=== PATIENT | female | born 1965 | race Caucasian/White ===

== ENCOUNTER → 2016-08-05 | Outpatient (CLI) | payer BC ==
--- NOTE | 2016-08-05 11:25 | MM ---
Reason for exam: screening (asymptomatic). Last mammogram was performed 1 year ago. History: Patient is postmenopausal. Family history of breast cancer in sister at age 59. Physical Findings: A clinical breast exam by your physician is recommended on an annual basis and results should be correlated with mammographic findings. MG Screening Mammo w CAD Bilateral CC and MLO view(s) were taken. Prior study comparison: July 24, 2015, bilateral MG screening mammo w CAD. July 21, 2014, bilateral MG screening mammo w CAD. There are scattered fibroglandular densities. Finding: There are few typically benign round, diffuse/scattered and grouped calcifications in both breasts. Asymmetric breast tissue in the left breast is stable. There is no discrete abnormality. ASSESSMENT: Benign, BI-RAD 2 RECOMMENDATION: Routine screening mammogram of both breasts in 1 year.
== END | disposition home or self-care (01) ==
LOC: RADMAMWWP 06:48
PROVIDERS: ATTEND Family Medicine
DX: Z12.31 Encounter for screening mammogram for malignant neoplasm of breast (principal)

== ENCOUNTER → 2018-01-06 | Outpatient (CLI) | payer BC ==
--- NOTE | 2018-01-07 11:58 | MM ---
Reason for exam: screening (asymptomatic). Last mammogram was performed 1 year and 5 months ago. History: Patient is postmenopausal. Family history of breast cancer in sister at age 59. Physical Findings: A clinical breast exam by your physician is recommended on an annual basis and results should be correlated with mammographic findings. MG 3D Screening Mammo W/Cad Bilateral CC and MLO view(s) were taken. Prior study comparison: August 05, 2016, bilateral MG screening mammo w CAD. July 24, 2015, bilateral MG screening mammo w CAD. There are scattered fibroglandular densities. No significant changes when compared with prior studies. ASSESSMENT: Benign, BI-RAD 2 RECOMMENDATION: Routine screening mammogram of both breasts in 1 year.
== END | disposition home or self-care (01) ==
LOC: RADMAMWWP 06:52
PROVIDERS: ATTEND Family Medicine
DX: Z12.31 Encounter for screening mammogram for malignant neoplasm of breast (principal); Z80.3 Family history of malignant neoplasm of breast
CPT/HCPCS: 77063; 77067

== ENCOUNTER → 2018-02-06 | Outpatient (CLI) | payer BC ==
[2018-02-06 14:23] LABS: Blood Urea Nitrogen 13 mg/dL (7-17)
== END | disposition home or self-care (01) ==
LOC: LABWHC1 13:15
PROVIDERS: ATTEND Family Medicine
DX: N28.89 Other specified disorders of kidney and ureter (principal)
CPT/HCPCS: 36415; 82565; 84520

== ENCOUNTER → 2019-01-22 | Outpatient (CLI) | payer BC ==
--- NOTE | 2019-01-22 13:43 | XR ---
Lateral hips HISTORY: Pain 2 views of each hip are submitted on a total of 4 images Bone mineralization, alignment are maintained. Joint space may be slightly reduced. Multiple phleboli ths present within the pelvis. Question some mild marginal spurring right hip. IMPRESSION: Possible mild osteoarthritis. Hip MRI may be of benefit.
--- NOTE | 2019-01-22 13:45 | XR ---
Lumbosacral spine HISTORY: Back pain, degenerative disc disease 5 views of lumbosacral spine Correlation to prior exam 05/14/2016 Multilevel spondylosis is present. No evident spondylolysis or spondylolisthesis. Sclerosis of the po sterior elements is compatible with facet arthropathy. Loss of disc height present L5-S1, L4-5. Mild multilevel spondylosis. IMPRESSION: Degenerative disc disease and facet arthropathy similar to prior exam.
== END | disposition home or self-care (01) ==
LOC: RADXRMAIN 10:48
PROVIDERS: ATTEND Family Medicine
DX: M25.551 Pain in right hip (principal); M25.552 Pain in left hip; M54.5 Low back pain
CPT/HCPCS: 72110; 73521

== ENCOUNTER → 2019-02-24 | Outpatient (CLI) | payer BC | END | disposition home or self-care (01) | LOC: RADMRIMAIN 19:29 | PROVIDERS: ATTEND Family Medicine | DX: Z53.9 Procedure and treatment not carried out, unspecified reason (principal) ==

== ENCOUNTER → 2019-05-31 | Outpatient (CLI) | payer BC ==
--- NOTE | 2019-05-31 08:47 | MM ---
Reason for exam: screening (asymptomatic). Last mammogram was performed 1 year and 5 months ago. History: Patient is postmenopausal. Family history of breast cancer in sister at age 59. Physical Findings: A clinical breast exam by your physician is recommended on an annual basis and results should be correlated with mammographic findings. MG Screening Mammo w CAD Bilateral CC, MLO, and XCCL view(s) were taken. Prior study comparison: January 06, 2018, bilateral MG 3d screening mammo w/cad. August 05, 2016, bilateral MG screening mammo w CAD. There are scattered fibroglandular densities. No suspicious abnormality. Stable left upper outer quadrant focal asymmetry at posterior depth. No significant changes when compared with prior studies. ASSESSMENT: Benign, BI-RAD 2 RECOMMENDATION: Routine screening mammogram of both breasts in 1 year.
== END | disposition home or self-care (01) ==
LOC: RADMAMWWP 07:22
PROVIDERS: ATTEND Family Medicine
DX: Z12.31 Encounter for screening mammogram for malignant neoplasm of breast (principal)
CPT/HCPCS: 77067

== ENCOUNTER → 2019-08-31 | Outpatient (CLI) | payer BC ==
[2019-08-31 16:01] LABS: African American GFR (CKD) 95.5 (60.0-200.0); Albumin 4.6 g/dL (3.80-4.90); Albumin/Globulin Ratio 1.77 (1.60-3.17); BUN/Creat Ratio 17.5 Ratio (12.00-20.00); Calcium 9.9 mg/dL (8.7-10.3); Chol/HDL Ratio 3.89; Globulin 2.6 g/dL (1.6-3.3); LDL Cholesterol,Calculated 144.2 mg/dL (0.0-131.0); Non-African American GFR(CKD) 82.4 (60.0-200.0); Potassium 4.1 mmol/L (3.5-5.5); Total Bilirubin 0.4 mg/dL (0.2-1.2); Total Protein 7.2 g/dL (6.2-8.2); VLDL Calculation 37.8 mg/dL (5.00-40.00)
== END | disposition home or self-care (01) ==
LOC: LABWHC1 08:05
PROVIDERS: ATTEND Internal Medicine Interventional Cardiology
DX: E78.2 Mixed hyperlipidemia (principal)
CPT/HCPCS: 36415; 80053; 80061

== ENCOUNTER → 2019-10-04 | Outpatient (CLI) | payer BC ==
[2019-10-04 10:07] LABS: HCT 39.2 % (34.0-46.0); HGB 12.6 gm/dL (11.4-16.0); MCHC 32.2 g/dL (31.0-37.0); MCV 86.9 fL (80.0-100.0); Mean Platelet Volume 7.2; Platelet Count 229 k/uL (150-450); RBC 4.51 m/uL (3.80-5.40); RDW 13.9 % (11.5-15.5); WBC 6.2 k/uL (3.8-10.6)
[2019-10-04 10:11] LABS: African American GFR (CKD) >90 (>60 ml/min/1.73 sqM); Anion Gap 8 mmol/L; Blood Urea Nitrogen 13 mg/dL (7-17); Carbon Dioxide 23 mmol/L (22-30); Chloride 107 mmol/L (98-107); Non-African American GFR(CKD) >90 (>60 ml/min/1.73 sqM); Potassium 4.1 mmol/L (3.5-5.1); Sodium 138 mmol/L (137-145)
== END | disposition home or self-care (01) ==
LOC: LABWHC1 08:30
PROVIDERS: ATTEND Internal Medicine Interventional Cardiology
DX: Z01.818 Encounter for other preprocedural examination (principal); R07.9 Chest pain, unspecified
CPT/HCPCS: 36415; 80051; 82565; 84520; 85027

== ENCOUNTER → 2019-10-06 | Outpatient (CLI) | payer BC | END | disposition home or self-care (01) | LOC: LABWHC1 11:16 | PROVIDERS: ATTEND Internal Medicine Interventional Cardiology | DX: U07.1 COVID-19 (principal) | CPT/HCPCS: 87635 ==

== ENCOUNTER 2019-10-08 06:18 | Day surgery (SDC) | payer BC ==
[2019-10-05 16:38] VITALS: BMI 46.6
[2019-10-08] MEDS ORDERED: ATORVASTATIN 80 MG TAB PO STA (06:19)
[2019-10-08] MEDS ORDERED: ASPIRIN 325 MG TAB PO STA (06:19)
[2019-10-08] MEDS ORDERED: NITROGLYCERIN SL TABS 0.4 MG TAB SUBLINGUAL PRN (06:19)
[2019-10-08] MEDS ORDERED: SODIUM CHLORIDE 0.9% 1,000 ML in EMPTY BAG 1 BAG IV ONE (06:19)
[2019-10-08] MEDS ORDERED: ALPRAZolam 0.25 MG TAB PO PRN (06:19)
[2019-10-08] MEDS ORDERED: ALPRAZolam 0.5 MG TAB PO PRN (06:19)
[2019-10-08] MEDS ORDERED: SODIUM CHLORIDE 0.9% 1,000 ML IV ONE (07:12)
[2019-10-08 07:15] VITALS: TEMP 98.1
[2019-10-08] MEDS ORDERED: LIDOCAINE 1% INJ 10MG/ML (20 ML MDV) ONE (07:16)
[2019-10-08] MEDS ORDERED: VERAPAMIL 2.5 MG/ML 2 ML AMP ONE (07:16)
[2019-10-08] MEDS ORDERED: fentaNYL (PF) 50 MCG/ML 2 ML AMP ONE (07:32)
[2019-10-08] MEDS ORDERED: fentaNYL (PF) 50 MCG/ML 2 ML AMP IV ONE (07:35)
[2019-10-08] MEDS ORDERED: LIDOCAINE 1% INJ 10MG/ML (20 ML MDV) SQ ONE (07:37)
[2019-10-08] MEDS ORDERED: VERAPAMIL SYRINGE (5 MG/10 ML) INTRAARTER ONE (07:39)
[2019-10-08] MEDS ORDERED: HEPARIN SODIUM 1,000 UN/ML (10ML VL) ONE (07:43)
[2019-10-08] MEDS ORDERED: IOPAMIDOL-370 125ML BTL INJ ONE (07:57)
[2019-10-08] MEDS ORDERED: RX INFO: IV CONTRAST WAS GIVEN 1 EACH MISC MISCELLANE PRN (08:17)
[2019-10-08] MEDS ORDERED: SODIUM CHLORIDE 0.9% 1,000 ML IV SCH (08:30)
[2019-10-08] MEDS ORDERED: NON FORMULARY DRUG (Losartan Potassium [Cozaar] 100 MG) PO SCH (09:00)
[2019-10-08] MEDS ORDERED: METOPROLOL TARTRATE 25 MG TAB PO SCH (09:00)
[2019-10-08] MEDS ORDERED: PANTOPRAZOLE 40 MG TABLET PO SCH (09:00)
[2019-10-08] MEDS ORDERED: NON FORMULARY DRUG (Aspirin [Adult Low Dose Aspirin Ec] 81 MG) PO SCH (09:00)
[2019-10-08 09:40] VITALS: RESP 16
--- NOTE | 2019-10-08 10:30 | CC ---
CARDIAC CATHETERIZATION REPORT Mrs. Hughes is a 54-year-old female with known history of hypertension, hyperlipidemia, family history of premature coronary artery disease who has been complaining of exertional chest discomfort and dyspnea on exertion. She underwent a myocardial perfusion imaging that revealed distal antral wall ischemia. In view of that, recommendation made regarding cardiac catheterization. The procedures, risks, and complication were discussed with the patient who is in full understanding and agreement. PROCEDURE: Patient was brought to the operations label clerk in a fasting semi-sedated state after receiving fentanyl and Benadryl and achieving moderate conscious sedated state. Using Xylocaine anesthesia and Seldinger technique, a 6-Macanese sheath was introduced in the right radial artery. Selective right and left coronary angiography performed using 5-Macanese 3.5 bend, right Valeri and 6-Macanese Jeff catheter, multiple views of the coronary artery including hemiaxial views were obtained. Following that, catheter and sheath were removed. Hemostasis was obtained with deployment of a TR band. There was no immediate complication. Patient was returned to room in stable condition. Of note, the patient received 5000 units of intravenous heparin as well as intra-arterial verapamil. FINDINGS: LEFT MAIN: This is a large-sized vessel, bifurcating into left circumflex, left anterior descending artery. Left main coronary artery has no evidence of high-grade stenosis. LEFT ANTERIOR DESCENDING ARTERY: This is a large-sized vessel reaching toward the apex with a wraparound apex segment giving rise to a small diagonal branch. The left anterior descending artery as well as branches have no evidence of obstructive coronary artery disease. LEFT CIRCUMFLEX: This is a nondominant vessel, moderate in caliber, giving rise to two obtuse marginal branch. The left circumflex as well as branches have no evidence of obstructive coronary artery disease. RIGHT CORONARY ARTERY: This is a large dominant vessel, bifurcating distally into PDA, posterolateral segment and branches. The right coronary artery as well as branches have no evidence of obstructive coronary artery disease. LEFT VENTRICULOGRAM: Left ventriculogram was not performed. CONCLUSION: 1. Normal coronary arteries. 2. Right dominance. RECOMMENDATION: In view of finding anatomy, I recommend continue medical therapy with aggressive coronary risk modifications being initiated. Those findings and recommendation were discussed with the patient and her family and they are in full understanding and agreement. DURATION OF PROCEDURE: 24 minutes. MMODL / IJN: [id number] /
--- NOTE | 2019-10-08 10:36 | LTR ---
DATE OF SERVICE: 10/08/2019 RE: Aurelia Hughes Dear Dr. Fox: I had the pleasure to perform cardiac catheterization on Mrs. Hughes at [facility] on October 07 and a full copy of the procedure note will be forwarded to you. In brief, she was found to have no evidence of obstructive coronary artery disease and based on those findings, I recommend to continue medical therapy with aggressive risk modifications being initiated and thank you again for allowing me to participate in this patient's care. Please feel free to call for any questions. Sincerely yours, MD LEXII LojaL / EUNN: [id number] /
[2019-10-08 15:55] VITALS: BP 136/72; PULSE 70
[2019-10-12] MEDS ORDERED: NON FORMULARY DRUG (Rosuvastatin Calcium [Crestor] 5 MG) PO SCH (08:17)
== END 2019-10-08 14:05 | disposition home or self-care (01) ==
LOC: CATHCVL 06:18
PROVIDERS: ATTEND Internal Medicine Interventional Cardiology
DX: R07.89 Other chest pain (principal); R94.39 Abnormal result of other cardiovascular function study; R06.09 Other forms of dyspnea; R42 Dizziness and giddiness; R11.0 Nausea; I10 Essential (primary) hypertension; E78.2 Mixed hyperlipidemia; Z82.49 Family history of ischemic heart disease and other diseases of the circulatory system; M19.90 Unspecified osteoarthritis, unspecified site; K21.9 Gastro-esophageal reflux disease without esophagitis; E78.00 Pure hypercholesterolemia, unspecified; Z90.49 Acquired absence of other specified parts of digestive tract; Z98.890 Other specified postprocedural states; Z87.891 Personal history of nicotine dependence; Z79.82 Long term (current) use of aspirin; Z79.899 Other long term (current) drug therapy; Z88.8 Allergy status to other drugs, medicaments and biological substances
CPT/HCPCS: 93454; C1769; C1894; J2001; J3010; J1644; Q9967

== ENCOUNTER → 2019-11-23 | Outpatient (CLI) | payer BC ==
[2019-11-23 18:02] LABS: Chol/HDL Ratio 3.88
== END | disposition home or self-care (01) ==
LOC: LABWHC1 08:00
PROVIDERS: ATTEND Nurse Practitioner Adult Health
DX: E78.2 Mixed hyperlipidemia (principal)
CPT/HCPCS: 36415; 80061

== ENCOUNTER 2020-12-04 11:53 | Emergency (ER) | payer BC ==
--- NOTE | 2020-12-04 12:48 | ED ---
ENT HPI - General Chief complaint: ENT Stated complaint: Ear pain Time Seen by Provider: 12/04/20 12:23 Source: patient Mode of arrival: ambulatory Limitations: no limitations - History of Present Illness Initial comments: 55-year-old female presents to the emergency department with a chief complaint of left ear pain for over the past 1 month. 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 States about 1 month ago she began to develop pain in the left ear without any discharge. States she saw in ENT specialist locally who suspected arthritis in the left TMJ. Patient reports she was discharged with steroids with no significant pulmonary symptoms. States she went to another ENT specialist in [place] where they suspected a similar cause of her symptoms. States several days ago she went to another emergency Department Center where they obtained a CT which found no acute findings. No mastoiditis. She brought the paperwork for me to review. Patient reports mild left sided facial swelling. States there is also pain over the left parotid gland but not the submandibular gland. Denies any significant pain behind the ear. - Related Data Home Medications Medication Instructions Recorded Confirmed Aspirin [Adult Low Dose Aspirin EC] 81 mg PO DAILY 10/05/19 10/08/19 Benadryl, Prednisone & Pepcid 1 dose PO DIRECTED 10/05/19 10/08/19 Celecoxib [CeleBREX] 200 mg PO BID 10/05/19 10/08/19 Ergocalciferol [Vitamin D2] 50,000 unit PO QMONTH 10/05/19 10/08/19 Famotidine/Ca Carb/Mag Hydrox 1 each PO HS PRN 10/05/19 10/08/19 [Pepcid Complete Tablet Chew] Losartan Potassium [Cozaar] 100 mg PO DAILY 10/05/19 10/08/19 Meclizine [Antivert] 25 mg PO DAILY PRN 10/05/19 10/08/19 Metoprolol Tartrate [Lopressor] 25 mg PO BID 10/05/19 10/08/19 Pantoprazole Sodium [Protonix] 40 mg PO DAILY 10/05/19 10/08/19 Rosuvastatin Calcium [Crestor] 5 mg PO TUTH 10/05/19 10/08/19 Previous Rx's Medication Instructions Recorded Amoxicillin/Potassium Clav 1 tab PO Q12HR #20 tab 12/04/20 [Augmentin 875-125 Tablet] Allergies Allergy/AdvReac Type Severity Reaction Status Date / Time erythromycin base Allergy Unknown Tightness Verified 12/04/20 12:07 in chest povidone-iodine Allergy Unknown Rash/Hives Verified 12/04/20 12:07 [From Betadine] soap [From Betadine] Allergy Unknown Rash/Hives Verified 12/04/20 12:07 Review of Systems ROS Statement: Those systems with pertinent positive or pertinent negative responses have been documented in the HPI. ROS Other: All systems not noted in ROS Statement are negative. Past Medical History Past Medical History: Chest Pain / Angina, GERD/Reflux, Osteoarthritis (OA) Additional Past Medical History / Comment(s): HIATAL HERNIA, THROAT ULCERS, DDD LOWER BACK & NECK, FATTY LIVER DISEASE, ARTHRITIS HIPS, HX OF LYME DISEASE WITH TX 1996, B[place] TYPE 2 RENAL CYST & MULTIPLE RENAL CYSTS HERMAN., INTERNAL HEMORRHOIDS, PT STATES "COARSE RIGHT CAROTID ARTERY"., STATES SOB, SEE CARDIOLOGY H & P., HX OF FALL AND RIGHT SHOULDER INJURY-UNABLE TO RAISE ARM ABOVE SHOULDER.,BARTHOLIN CYST., CLAUSTROPHOBIC, VERTIGO. History of Any Multi-Drug Resistant Organisms: None Reported Past Surgical History: Cholecystectomy, Hysterectomy, Tonsillectomy, Tubal Lig ation Additional Past Surgical History / Comment(s): partial hysterectomy Past Anesthesia/Blood Transfusion Reactions: No Reported Reaction Additional Past Anesthesia/Blood Transfusion Reaction / Comment(s): claustrophobic Past Psychological History: Anxiety Smoking Status: Never smoker Past Alcohol Use History: None Reported Past Drug Use History: None Reported - Past Family History Father Family Medical History: Myocardial Infarction (ID) Additional Family Medical History / Comment(s): AT 60 YRS OLD FROM ID Brother(s) Family Medical History: Coronary Artery Disease (CAD) Sister(s) Family Medical History: Cancer General Exam Limitations: no limitations General appearance: alert, in no apparent distress, obese Head exam: Present: atraumatic, normocephalic, normal inspection Eye exam: Present: normal appearance, PERRL, EOMI Pupils: Present: normal accommodation ENT exam: Present: normal exam, normal oropharynx, mucous membranes moist, TM's normal bilaterally, normal external ear exam (No signs of otitis externa or media in the left ear. No signs of mastoiditis over the left ear.) Neck exam: Present: normal inspection, full ROM. Absent: tenderness, lymphadenopathy Respiratory exam: Present: normal lung sounds bilaterally. Absent: respiratory distress, wheezes, rales, rhonchi, stridor Cardiovascular Exam: Present: regular rate, normal rhythm, normal heart sounds. Absent: systolic murmur Extremities exam: Present: normal inspection, full ROM, normal capillary refill. Absent: tenderness, pedal edema, joint swelling Back exam: Present: normal inspection, full ROM. Absent: tenderness, CVA tenderness (R), CVA tenderness (L) Neurological exam: Present: alert, oriented X3 Psychiatric exam: Present: normal affect, normal mood Skin exam: Present: warm, dry, intact, normal color Course Vital Signs 12/04/20 12/04/20 12:04 13:00 Temperature 97.9 F 98.1 F Pulse Rate 103 H 92 Respiratory 20 16 Rate Blood Pressure 150/87 148/78 O2 Sat by Pulse 98 98 Oximetry Medical Decision Making - Medical Decision Making 55-year-old female presents to emergency Department with a chief complaint of left ear pain. I reviewed the CT results that she brought. There was no signs of mastoiditis or any other acute findings. Physical examination also suggests no signs of mastoiditis, however she does have tenderness over the left parotid gland but no overlying cellulitic skin changes. I will start the patient on Augmentin for possible peritonitis. Advised to follow with another ENT specialist. Strict return parameters were thoroughly discussed the patient was upsetting agreeable. Case discussed with physician. Disposition Clinical Impression: Swelling of left side of face Disposition: HOME SELF-CARE Condition: Stable Instructions (If sedation given, give patient instructions): Earache (ED) Additional Instructions: Follow-up follow-up with an ENT specialist. Please return to the Emergency Department if symptoms worsen or any other concerns. Prescriptions: Amoxicillin/Potassium Clav [Augmentin 875-125 Tablet] 1 tab PO Q12HR #20 tab Is patient prescribed a controlled substance at d/c from ED?: No Referrals: Kailee Albarado MD [Primary Care Provider] - 1-2 days Time of Disposition: 12:48
[2020-12-04 13:01] VITALS: BP 148/78; PULSE 92; RESP 16; TEMP 98.1
== END 2020-12-04 13:00 | disposition home or self-care (01) ==
LOC: EC 11:53
DX: R22.9 Localized swelling, mass and lump, unspecified (principal); K21.9 Gastro-esophageal reflux disease without esophagitis; M19.90 Unspecified osteoarthritis, unspecified site; Z90.49 Acquired absence of other specified parts of digestive tract; Z90.710 Acquired absence of both cervix and uterus; Z90.09 Acquired absence of other part of head and neck; Z98.51 Tubal ligation status; Z79.82 Long term (current) use of aspirin
CPT/HCPCS: 99283

== ENCOUNTER → 2022-05-31 | Outpatient (CLI) | payer BC ==
--- NOTE | 2022-05-31 11:41 | CT ---
EXAMINATION TYPE: CT iac wo con DATE OF EXAM: 05/31/2022 COMPARISON: None HISTORY: 57 year-old female H93.19, tinnitus, Lt sided hearing loss CT DLP: 150 mGycm Automated exposure control for dose reduction was used. TECHNIQUE: Contiguous high-resolution axial scanning of the temporal bones performed without IV cont rast. Coronal reformatted images obtained. FINDINGS: There is no abnormality of limited visualized intracranial structures. External auditory canals and tympanic membranes appear unremarkable. The middle ear cavities and mastoid air cells are well pneumatized. There is no abnormality of middle ear ossicles. The round and oval windows are normal. There is no abnormality of bony labyrinths. No dehiscence of the superior semicircular canals. The vestibular and cochlear aqueducts are well visualized. The facial nerve canal is normal bilaterally. The internal auditory canal and meati are symmetrical bilaterally. There is no evidence of fractures. Not much of the paranasal sinuses are visualized. Visualized sphenoid sinuses are clear. Reformatted images confirm above findings. IMPRESSION: Unremarkable high resolution temporal bone CT.
== END | disposition home or self-care (01) ==
LOC: RADCTMAIN 07:45
PROVIDERS: ATTEND Otolaryngology
DX: H93.12 Tinnitus, left ear (principal); H91.92 Unspecified hearing loss, left ear; R42 Dizziness and giddiness
CPT/HCPCS: 70480